=== PATIENT | female | born 1950 | race Caucasian/White ===

== ENCOUNTER → 2020-11-27 | Day surgery (SDC) | payer MEDICARE, OTHER | END | disposition home or self-care (01) | LOC: FMAMMOTONE 10-16 09:46 | PROVIDERS: ATTEND Family Medicine | PROC: 0HBT3ZX Excision of Right Breast, Percutaneous Approach, Diagnostic (ICD-10-PCS; principal; 2020-11-27) | DX: D24.1 Benign neoplasm of right breast (principal); N64.89 Other specified disorders of breast; R92.0 Mammographic microcalcification found on diagnostic imaging of breast | CPT/HCPCS: 19081; 76098-TC-FY; 87899; A4648 ==

== ENCOUNTER 2024-12-17 14:47 | Emergency (ER) | payer MEDICARE, OTHER ==
[2024-12-17 15:07] VITALS: BP 125/75; PULSE 94; RESP 18; TEMP 97.9; BMI 28.6
[2024-12-17 15:28] LABS: EPI CELLS 4 /uL (0-25.1); HYALINE CASTS 0 /uL (0-3.1); URINE APPEARANCE CLEAR; URINE BACTERIA 30 /uL (0-1359); URINE BILIRUBIN NEGATIVE (NEGATIVE); URINE COLOR YELLOW; URINE GLUCOSE (UA) NEGATIVE (NEGATIVE); URINE KETONE NEGATIVE (NEGATIVE); URINE LEUK ESTERASE TRACE (NEGATIVE); URINE NITRITE NEGATIVE (NEGATIVE); URINE PROTEIN NEGATIVE (NEGATIVE); URINE RBC 17 /uL (0-23.9); URINE UROBILINOGEN 1.0 mg/dL (0.2-1.0); URINE WBC 7 /uL (0-25.8)
[2024-12-17] MEDS ORDERED: AMOX TR/POT CLAV 875MG/125MG TABLETS (FP) ONE (16:11)
[2024-12-17] MEDS: AMOX TR/POT CLAV 875MG/125MG TABLETS (FP) PO ONE (16:35)
[2024-12-17] MEDS: MUPIROCIN 2% TOPICAL OINTMENT 22 GM TUBE TP ONE (16:43)
== END 2024-12-17 16:50 | disposition home or self-care (01) ==
LOC: JER 14:47
DX: R30.0 Dysuria (principal); L08.9 Local infection of the skin and subcutaneous tissue, unspecified; R21 Rash and other nonspecific skin eruption; R10.12 Left upper quadrant pain; L01.00 Impetigo, unspecified
CPT/HCPCS: 81003; 87086; 99283-25